=== PATIENT | female | born 1940 | race Caucasian/White ===

== ENCOUNTER 2021-06-23 16:13 | Inpatient (IN) ==
[2021-06-23] MEDS ORDERED: Naloxone 0.4 MG/ML INJ IVP PRN ×2 (22:33→23:44)
[2021-06-24] MEDS ORDERED: Acetaminophen 325 MG TABLET PO PRN (00:05)
[2021-06-24] MEDS ORDERED: Melatonin 3 MG TABLET PO PRN (00:05)
[2021-06-24] MEDS ORDERED: *HR* Dextrose 50 % in Water (Syg) 50 ML SYRINGE IVP PRN (00:15)
[2021-06-24] MEDS ORDERED: Dextrose 4 GM Chewable Tablets PO PRN ×2 (00:15)
[2021-06-24] MEDS ORDERED: D5% in Water 1,000 ML IVC PRN (00:15)
[2021-06-24 00:22] LABS: Magnesium 1.3 mg/dL (1.6-2.6); Phosphorous 1.9 mg/dL (2.7-4.5)
[2021-06-24 00:28] LABS: Albumin 3.6 g/dL (3.5-5.7); Calcium 9.3 mg/dL (8.6-10.3); Phosphorous 1.9 mg/dL (2.7-4.5)
[2021-06-24 00:42] LABS: Hematocrit 31.2 % (35.3-44.9); Hemoglobin 9.1 g/dL (11.5-15.4); Mean Corpuscular HGB Conc 29.2 g/dL (31.6-35.5); Mean Corpuscular Volume 89.1 fL (83.0-100.0); Platelet Count 230 K/mcL (140-400); White Blood Count 6.3 K/mcL (4.3-11.1)
[2021-06-24] MEDS ORDERED: SODIUM ZIRCONIUM CYCLOSILICATE 5 GM POWD.PACK PO SCH (00:45)
[2021-06-24] MEDS ORDERED: 0.9 % Sodium Chloride 1,000 ML ONE (03:17)
[2021-06-24 04:04] LABS: Sodium, Urine 35.7 mEq/L
[2021-06-24 04:07] LABS: Bacteria,Urine Few per hpf (None-Few); Bilirubin,Urine Negative (Negative); Blood,Urine Small (Negative); Clarity,Urine Turbid (Clear); Color,Urine Yellow (Yellow); Glucose,Urine (UA) Normal (Normal); Ketones,Urine Negative (Negative); Leukocyte Esterase,Urine Large (Negative); Mucus,Urine Few per lpf (None-Few); Nitrite,Urine Negative (Negative); Protein,Urine Trace mg/dL (Neg-Trace); RBC,Urine 0-3 per hpf (0-3); Squamous Epithelial Cell,Urine Few per hpf (None-Few); Urobilinogen,Urine Normal (Normal)
[2021-06-24] MEDS: Furosemide 20 MG/2 ML VIAL IVP SCH ×3 (04:41→20:46)
[2021-06-24 06:26] LABS: Basophils % 0.3 %; Eosinophils # 0.1 K/mcL (0.0-0.6); Eosinophils % 1.3 %; Hemoglobin 8.7 g/dL (11.5-15.4); Immature Granulocytes % 0.3 % (0-4); Lymphocytes # 0.8 K/mcL (0.6-4.6); Lymphocytes % 12.8 %; Mean Corpuscular Hemoglobin 25.4 pg (28.0-33.3); Mean Corpuscular Volume 87.5 fL (83.0-100.0); Mean Platelet Volume 10.8 fL (9.4-12.4); Monocytes # 0.4 K/mcL (0.0-1.3); Neutrophils # 4.7 K/mcL (1.6-8.9); Nucleated Red Blood Cells 0.5 /100 WBC (0); Platelet Count 208 K/mcL (140-400); Red Blood Count 3.43 M/mcL (3.82-4.97); Segmented Neutrophils % 78.3 %
[2021-06-24 06:34] LABS: Magnesium 1.8 mg/dL (1.6-2.6); Phosphorous 2.1 mg/dL (2.7-4.5)
[2021-06-24 06:46] LABS: Calcium 9.2 mg/dL (8.6-10.3); Chol/HDL Ratio 2.2 (0-4.9); Potassium 6.9 mEq/L (3.5-5.1)
[2021-06-24] MEDS ORDERED: Insulin Human Regular 10 UNIT in 0.9 % Sodium Chloride 10 ML IV ONE (07:43)
[2021-06-24] MEDS ORDERED: *HR* Dextrose 50 % in Water (Syg) 50 ML SYRINGE IVP ONE (07:44)
[2021-06-24] MEDS: Insulin LISPRO 300 UNITS/3 ML VIAL SUBQ SCH ×4 (08:13→20:26)
[2021-06-24] MEDS: Apixaban 5 MG TABLET PO SCH ×2 (09:29→20:36)
[2021-06-24] MEDS: Nicotine 7 MG PATCH.TD24 TD SCH (09:30)
[2021-06-24] MEDS: SODIUM ZIRCONIUM CYCLOSILICATE 5 GM POWD.PACK PO SCH ×2 (09:30→20:40)
[2021-06-24] MEDS: *HR* Amiodarone 200 MG TABLET PO SCH ×2 (09:30→20:36)
[2021-06-24] MEDS ORDERED: Perflutren Lipid Microsphere 1.3 ML in 0.9 % Sodium Chloride 8.7 ML IVP PRN (10:01)
[2021-06-24] MEDS: Albumin 25% 25gram/100mL 25 GM/100 ML IV.SOLN IVPB SCH ×2 (12:29→18:48)
[2021-06-24] MEDS: Metoprolol XL (24 HR) Succ 25 MG TAB.ER.24H PO SCH (16:06)
[2021-06-24] MEDS: Budesonide/Formoterol 160/4.5 1 PUFF INH IH SCH (20:42)
[2021-06-25] MEDS: Albumin 25% 25gram/100mL 25 GM/100 ML IV.SOLN IVPB SCH ×3 (04:54→20:15)
[2021-06-25 05:38] LABS: Basophils % 0.6 %; Eosinophils # 0.1 K/mcL (0.0-0.6); Eosinophils % 1.9 %; Hematocrit 30.2 % (35.3-44.9); Hemoglobin 8.5 g/dL (11.5-15.4); Immature Granulocytes % 0.4 % (0-4); Lymphocytes # 0.7 K/mcL (0.6-4.6); Lymphocytes % 12.9 %; Mean Corpuscular HGB Conc 28.1 g/dL (31.6-35.5); Mean Corpuscular Hemoglobin 25.5 pg (28.0-33.3); Mean Corpuscular Volume 90.7 fL (83.0-100.0); Monocytes # 0.5 K/mcL (0.0-1.3); Monocytes % 8.8 %; Nucleated Red Blood Cells 0.6 /100 WBC (0); Platelet Count 210 K/mcL (140-400); Red Blood Count 3.33 M/mcL (3.82-4.97); Segmented Neutrophils % 75.4 %; White Blood Count 5.3 K/mcL (4.3-11.1)
[2021-06-25 05:56] LABS: Magnesium 1.5 mg/dL (1.6-2.6); Phosphorous 4.5 mg/dL (2.7-4.5)
[2021-06-25] MEDS: Insulin LISPRO 300 UNITS/3 ML VIAL SUBQ SCH ×4 (07:25→20:01)
[2021-06-25] MEDS: Budesonide/Formoterol 160/4.5 1 PUFF INH IH SCH ×2 (07:45→20:13)
[2021-06-25] MEDS: Furosemide 20 MG/2 ML VIAL IVP SCH ×3 (07:49→17:23)
[2021-06-25] MEDS: Metoprolol XL (24 HR) Succ 25 MG TAB.ER.24H PO SCH ×2 (07:50→12:21)
[2021-06-25] MEDS: Apixaban 5 MG TABLET PO SCH (07:51)
[2021-06-25] MEDS: Nicotine 7 MG PATCH.TD24 TD SCH (07:53)
[2021-06-25] MEDS: *HR* Amiodarone 200 MG TABLET PO SCH ×2 (07:53→20:17)
[2021-06-25] MEDS ORDERED: Insulin Human Regular 10 UNIT in 0.9 % Sodium Chloride 10 ML IV ONE (07:55)
[2021-06-25] MEDS ORDERED: *HR* Dextrose 50 % in Water (Vial) 50 ML VIAL IVP ONE (07:57)
[2021-06-25] MEDS: polyethylene glycoL 3350 17 GM POWD.PACK PO SCH (10:30)
[2021-06-25] MEDS: rOPINIRole 1 MG TABLET PO SCH (15:11)
[2021-06-25] MEDS: SODIUM ZIRCONIUM CYCLOSILICATE 5 GM POWD.PACK PO SCH (15:17)
[2021-06-25 17:07] LABS: Estimated Average Glucose 134 mg/dl; Hemoglobin A1C 6.3 %
[2021-06-25] MEDS: Ondansetron 4 MG/2 ML VIAL IVP PRN (17:22)
[2021-06-25] MEDS: Apixaban 2.5 MG TABLET PO SCH (20:16)
[2021-06-25] MEDS ORDERED: rOPINIRole 1 MG TABLET PO SCH (21:00)
[2021-06-26] MEDS: Albumin 25% 25gram/100mL 25 GM/100 ML IV.SOLN IVPB SCH ×3 (04:22→15:39)
[2021-06-26] MEDS: Ondansetron 4 MG/2 ML VIAL IVP PRN ×2 (04:26→16:07)
[2021-06-26 04:56] LABS: Basophils % 0.4 %; Eosinophils % 0.6 %; Hematocrit 28.8 % (35.3-44.9); Hemoglobin 8.4 g/dL (11.5-15.4); Immature Granulocytes % 0.2 % (0-4); Lymphocytes # 0.4 K/mcL (0.6-4.6); Lymphocytes % 8.2 %; Mean Corpuscular HGB Conc 29.2 g/dL (31.6-35.5); Mean Corpuscular Hemoglobin 26.3 pg (28.0-33.3); Mean Platelet Volume 11.1 fL (9.4-12.4); Monocytes # 0.4 K/mcL (0.0-1.3); Monocytes % 7.5 %; Neutrophils # 4.3 K/mcL (1.6-8.9); Nucleated Red Blood Cells 0.8 /100 WBC (0); Platelet Count 206 K/mcL (140-400); Red Cell Distribution Width 15.7 % (11.5-14.5); Segmented Neutrophils % 83.1 %; White Blood Count 5.2 K/mcL (4.3-11.1)
[2021-06-26 05:10] LABS: Magnesium 1.7 mg/dL (1.6-2.6); Phosphorous 5.2 mg/dL (2.7-4.5); Potassium 5.9 mEq/L (3.5-5.1)
[2021-06-26] MEDS ORDERED: Furosemide 20 MG/2 ML VIAL IVP ONE (07:42)
[2021-06-26] MEDS ORDERED: Furosemide 20 MG/2 ML VIAL IVP STA (07:44)
[2021-06-26] MEDS: Insulin LISPRO 300 UNITS/3 ML VIAL SUBQ SCH ×4 (07:48→21:11)
[2021-06-26] MEDS ORDERED: Albumin 25% 25gram/100mL 25 GM/100 ML IV.SOLN IVPB ONE (07:48)
[2021-06-26] MEDS: Metoprolol XL (24 HR) Succ 25 MG TAB.ER.24H PO SCH (08:00)
[2021-06-26] MEDS: Budesonide/Formoterol 160/4.5 1 PUFF INH IH SCH ×2 (08:04→20:03)
[2021-06-26 08:12] LABS: ABG Base Excess 3 mEq/L (-2 to 3); ABG HCO3 30 mEq/L (21-27); ABG Oxygen Saturation 94 % (95-98); ABG PCO2 65 mmHg (35-45); ABG PH 7.28 pH Units (7.32-7.45); ABG PO2 81 mmHg (85-104); ABG TCO2 32 mEq/L (20-26)
[2021-06-26] MEDS ORDERED: NON-FORMULARY MEDICATION 1 EACH EACH (Omeprazole [Prilosec] 40 MG Capsule.Dr) PO SCH (09:00)
[2021-06-26] MEDS ORDERED: Pregabalin 75 MG CAPSULE PO SCH (09:00)
[2021-06-26] MEDS: SODIUM ZIRCONIUM CYCLOSILICATE 5 GM POWD.PACK PO SCH (09:28)
[2021-06-26] MEDS: Furosemide 20 MG/2 ML VIAL IVP SCH ×3 (09:30→20:00)
[2021-06-26] MEDS: Pregabalin 50 MG CAPSULE PO SCH (09:44)
[2021-06-26] MEDS: *HR* Amiodarone 200 MG TABLET PO SCH ×2 (09:45→21:11)
[2021-06-26] MEDS: Apixaban 2.5 MG TABLET PO SCH ×2 (09:45→21:11)
[2021-06-26] MEDS: Nicotine 7 MG PATCH.TD24 TD SCH (09:45)
[2021-06-26] MEDS: polyethylene glycoL 3350 17 GM POWD.PACK PO SCH (09:54)
[2021-06-26] MEDS: cefTRIAXone 1,000 MG in 0.9 % Sodium Chloride 10 ML IVP SCH (14:28)
[2021-06-26] MEDS: Azithromycin 500 MG in 0.9 % Sodium Chloride 250 ML IVPB SCH (14:29)
[2021-06-26] MEDS: Norepinephrine 4 MG/254 ML IV.SOLN IVC SCH ×3 (15:35→20:08)
[2021-06-26] MEDS ORDERED: Morphine Sulfate 2 MG/ML SYRINGE IVP ONE (15:47)
[2021-06-26] MEDS ORDERED: Morphine Sulfate 2 MG/ML SYRINGE IVP PRN (15:51)
[2021-06-26] MEDS ORDERED: *HR* LORazepam 2 MG/ML VIAL IVP ONE (16:17)
[2021-06-26] MEDS: Acetaminophen IV 1,000 MG/100 ML BAG IVPB SCH (18:31)
[2021-06-26] MEDS: rOPINIRole 1 MG TABLET PO SCH (21:12)
[2021-06-27] MEDS: Norepinephrine 4 MG/254 ML IV.SOLN IVC SCH ×7 (00:07→18:52)
[2021-06-27] MEDS: Albumin 25% 25gram/100mL 25 GM/100 ML IV.SOLN IVPB SCH ×3 (00:34→16:44)
[2021-06-27 02:31] LABS: Basophils % 0.5 %; Eosinophils % 0.5 %; Hematocrit 27.8 % (35.3-44.9); Hemoglobin 8.1 g/dL (11.5-15.4); Immature Granulocytes % 0.3 % (0-4); Lymphocytes # 0.9 K/mcL (0.6-4.6); Lymphocytes % 14.7 %; Mean Corpuscular HGB Conc 29.1 g/dL (31.6-35.5); Mean Corpuscular Hemoglobin 25.7 pg (28.0-33.3); Mean Corpuscular Volume 88.3 fL (83.0-100.0); Mean Platelet Volume 11.1 fL (9.4-12.4); Monocytes # 0.6 K/mcL (0.0-1.3); Monocytes % 9.3 %; Neutrophils # 4.4 K/mcL (1.6-8.9); Nucleated Red Blood Cells 0.3 /100 WBC (0); Platelet Count 186 K/mcL (140-400); Red Blood Count 3.15 M/mcL (3.82-4.97); Red Cell Distribution Width 15.8 % (11.5-14.5); Segmented Neutrophils % 74.7 %; White Blood Count 5.9 K/mcL (4.3-11.1)
[2021-06-27] MEDS: Acetaminophen IV 1,000 MG/100 ML BAG IVPB SCH ×3 (02:39→12:45)
[2021-06-27 02:49] LABS: Magnesium 1.7 mg/dL (1.6-2.6); Phosphorous 5.4 mg/dL (2.7-4.5); Potassium 5.9 mEq/L (3.5-5.1)
[2021-06-27] MEDS ORDERED: *HR* Dextrose 50 % in Water (Vial) 50 ML VIAL IVP ONE (07:37)
[2021-06-27] MEDS ORDERED: Insulin Human Regular 10 UNIT in 0.9 % Sodium Chloride 10 ML IV ONE (07:37)
[2021-06-27] MEDS: Insulin LISPRO 300 UNITS/3 ML VIAL SUBQ SCH ×4 (07:57→21:37)
[2021-06-27] MEDS: Furosemide 20 MG/2 ML VIAL IVP SCH ×2 (08:19→16:46)
[2021-06-27] MEDS: *HR* Amiodarone 200 MG TABLET PO SCH (08:19)
[2021-06-27] MEDS: Pregabalin 50 MG CAPSULE PO SCH (08:20)
[2021-06-27] MEDS: Apixaban 2.5 MG TABLET PO SCH ×2 (08:20→21:36)
[2021-06-27] MEDS: cefTRIAXone 1,000 MG in 0.9 % Sodium Chloride 10 ML IVP SCH (08:20)
[2021-06-27] MEDS: Nicotine 7 MG PATCH.TD24 TD SCH (08:20)
[2021-06-27] MEDS: Metoprolol XL (24 HR) Succ 25 MG TAB.ER.24H PO SCH (08:21)
[2021-06-27] MEDS: SODIUM ZIRCONIUM CYCLOSILICATE 5 GM POWD.PACK PO SCH (08:35)
[2021-06-27] MEDS: polyethylene glycoL 3350 17 GM POWD.PACK PO SCH (08:35)
[2021-06-27] MEDS: Budesonide/Formoterol 160/4.5 1 PUFF INH IH SCH (08:43)
[2021-06-27] MEDS: Albumin 25% 25gram/100mL 25 GM/100 ML IV.SOLN IVC SCH ×2 (10:57→11:51)
[2021-06-27] MEDS: Azithromycin 500 MG in 0.9 % Sodium Chloride 250 ML IVPB SCH (13:45)
[2021-06-27] MEDS ORDERED: *HR* LORazepam 2 MG/ML VIAL IVP PRN (13:48)
[2021-06-27] MEDS: rOPINIRole 1 MG TABLET PO SCH (21:37)
[2021-06-28] MEDS: Ondansetron 4 MG/2 ML VIAL IVP PRN (00:03)
[2021-06-28] MEDS: Budesonide/Formoterol 160/4.5 1 PUFF INH IH SCH ×3 (00:33→20:02)
[2021-06-28] MEDS: Albumin 25% 25gram/100mL 25 GM/100 ML IV.SOLN IVPB SCH ×3 (01:24→16:59)
[2021-06-28] MEDS ORDERED: Ondansetron 4 MG/2 ML VIAL IVP ONE (01:46)
[2021-06-28] MEDS ORDERED: Acetaminophen IV 1,000 MG/100 ML BAG IVPB ONE (01:47)
[2021-06-28 04:56] LABS: Basophils # 0.1 K/mcL (0.0-0.2); Basophils % 0.9 %; Eosinophils % 0.7 %; Hematocrit 26.2 % (35.3-44.9); Hemoglobin 7.7 g/dL (11.5-15.4); Immature Granulocytes % 0.5 % (0-4); Lymphocytes # 0.6 K/mcL (0.6-4.6); Lymphocytes % 10.9 %; Mean Corpuscular HGB Conc 29.4 g/dL (31.6-35.5); Mean Corpuscular Hemoglobin 25.8 pg (28.0-33.3); Mean Corpuscular Volume 87.9 fL (83.0-100.0); Mean Platelet Volume 11.4 fL (9.4-12.4); Monocytes # 0.5 K/mcL (0.0-1.3); Monocytes % 8.4 %; Neutrophils # 4.3 K/mcL (1.6-8.9); Nucleated Red Blood Cells 0.7 /100 WBC (0); Platelet Count 198 K/mcL (140-400); Red Blood Count 2.98 M/mcL (3.82-4.97); Red Cell Distribution Width 15.9 % (11.5-14.5); Segmented Neutrophils % 78.6 %; White Blood Count 5.5 K/mcL (4.3-11.1)
[2021-06-28] MEDS: Norepinephrine 4 MG/254 ML IV.SOLN IVC SCH ×5 (04:58→16:49)
[2021-06-28 05:18] LABS: Calcium 8.8 mg/dL (8.6-10.3); Magnesium 1.7 mg/dL (1.6-2.6); Phosphorous 4.9 mg/dL (2.7-4.5); Potassium 5.4 mEq/L (3.5-5.1)
[2021-06-28] MEDS: Insulin LISPRO 300 UNITS/3 ML VIAL SUBQ SCH ×4 (07:48→20:03)
[2021-06-28] MEDS: Furosemide 20 MG/2 ML VIAL IVP SCH (08:59)
[2021-06-28] MEDS: Pregabalin 50 MG CAPSULE PO SCH (09:16)
[2021-06-28] MEDS: Nicotine 7 MG PATCH.TD24 TD SCH (09:16)
[2021-06-28] MEDS: Apixaban 2.5 MG TABLET PO SCH ×2 (09:17→20:13)
[2021-06-28] MEDS: polyethylene glycoL 3350 17 GM POWD.PACK PO SCH (09:18)
[2021-06-28] MEDS: cefTRIAXone 1,000 MG in 0.9 % Sodium Chloride 10 ML IVP SCH (09:18)
[2021-06-28] MEDS: Azithromycin 500 MG in 0.9 % Sodium Chloride 250 ML IVPB SCH (14:17)
[2021-06-28] MEDS ORDERED: Milk and Molasses Enema 200 ML RC ONE (15:38)
[2021-06-28] MEDS ORDERED: *HR* Amiodarone 200 MG TABLET PO SCH (16:00)
[2021-06-28] MEDS: rOPINIRole 1 MG TABLET PO SCH (20:13)
[2021-06-29] MEDS: Albumin 25% 25gram/100mL 25 GM/100 ML IV.SOLN IVPB SCH ×2 (00:10→08:02)
[2021-06-29 05:44] LABS: Hemoglobin 8.3 g/dL (11.5-15.4)
[2021-06-29 05:45] LABS: Basophils # 0.1 K/mcL (0.0-0.2); Basophils % 0.9 %; Eosinophils % 0.7 %; Hematocrit 29.1 % (35.3-44.9); Immature Granulocytes % 0.5 % (0-4); Lymphocytes # 0.5 K/mcL (0.6-4.6); Lymphocytes % 8.6 %; Mean Corpuscular HGB Conc 28.5 g/dL (31.6-35.5); Mean Corpuscular Hemoglobin 25.5 pg (28.0-33.3); Mean Corpuscular Volume 89.5 fL (83.0-100.0); Mean Platelet Volume 10.8 fL (9.4-12.4); Monocytes # 0.5 K/mcL (0.0-1.3); Monocytes % 9.3 %; Platelet Count 193 K/mcL (140-400); Red Blood Count 3.25 M/mcL (3.82-4.97); White Blood Count 5.8 K/mcL (4.3-11.1)
[2021-06-29 05:57] LABS: Neutrophils # 4.6 K/mcL (1.6-8.9)
[2021-06-29 06:12] LABS: Calcium 9.2 mg/dL (8.6-10.3); Magnesium 1.8 mg/dL (1.6-2.6); Phosphorous 4.6 mg/dL (2.7-4.5); Potassium 5.3 mEq/L (3.5-5.1)
[2021-06-29] MEDS: Insulin LISPRO 300 UNITS/3 ML VIAL SUBQ SCH ×4 (07:35→20:39)
[2021-06-29] MEDS: cefTRIAXone 1,000 MG in 0.9 % Sodium Chloride 10 ML IVP SCH (08:02)
[2021-06-29] MEDS: Nicotine 7 MG PATCH.TD24 TD SCH (08:02)
[2021-06-29] MEDS: Pregabalin 50 MG CAPSULE PO SCH (08:02)
[2021-06-29] MEDS: polyethylene glycoL 3350 17 GM POWD.PACK PO SCH (08:02)
[2021-06-29] MEDS: Furosemide 20 MG/2 ML VIAL IVP SCH (08:05)
[2021-06-29] MEDS: Apixaban 2.5 MG TABLET PO SCH ×2 (08:05→20:18)
[2021-06-29] MEDS: Budesonide/Formoterol 160/4.5 1 PUFF INH IH SCH ×2 (08:11→19:54)
[2021-06-29] MEDS: Azithromycin 500 MG in 0.9 % Sodium Chloride 250 ML IVPB SCH (14:13)
[2021-06-29] MEDS: rOPINIRole 1 MG TABLET PO SCH (20:18)
[2021-06-30] MEDS: Ondansetron 4 MG/2 ML VIAL IVP PRN (02:36)
[2021-06-30 03:03] LABS: Lymphocytes % 8.3 %; Mean Corpuscular HGB Conc 28.9 g/dL (31.6-35.5); Mean Corpuscular Hemoglobin 25.5 pg (28.0-33.3); Mean Platelet Volume 11.3 fL (9.4-12.4)
[2021-06-30 03:04] LABS: Basophils % 0.5 %; Eosinophils # 0.1 K/mcL (0.0-0.6); Hematocrit 28.4 % (35.3-44.9); Hemoglobin 8.2 g/dL (11.5-15.4); Immature Granulocytes % 0.3 % (0-4); Lymphocytes # 0.5 K/mcL (0.6-4.6); Mean Corpuscular Volume 88.2 fL (83.0-100.0); Monocytes # 0.6 K/mcL (0.0-1.3); Monocytes % 10.6 %; Neutrophils # 4.8 K/mcL (1.6-8.9); Nucleated Red Blood Cells 0.8 /100 WBC (0); Platelet Count 212 K/mcL (140-400); Red Blood Count 3.22 M/mcL (3.82-4.97); Segmented Neutrophils % 79.3 %
[2021-06-30 03:20] LABS: Calcium 9.3 mg/dL (8.6-10.3); Magnesium 1.9 mg/dL (1.6-2.6); Phosphorous 4.9 mg/dL (2.7-4.5); Potassium 5.2 mEq/L (3.5-5.1)
[2021-06-30 04:29] LABS: Hypochromasia Present (Not Present); Platelet Estimate Normal (Normal); Polychromasia 1+ (Not Present)
[2021-06-30] MEDS: Budesonide/Formoterol 160/4.5 1 PUFF INH IH SCH ×2 (07:27→19:40)
[2021-06-30] MEDS: Insulin LISPRO 300 UNITS/3 ML VIAL SUBQ SCH ×4 (07:59→20:47)
[2021-06-30] MEDS: Apixaban 2.5 MG TABLET PO SCH ×2 (08:45→19:34)
[2021-06-30] MEDS: Nicotine 7 MG PATCH.TD24 TD SCH (08:45)
[2021-06-30] MEDS: *HR* Amiodarone 200 MG TABLET PO SCH ×2 (08:45→19:34)
[2021-06-30] MEDS: polyethylene glycoL 3350 17 GM POWD.PACK PO SCH (08:45)
[2021-06-30] MEDS: Pregabalin 50 MG CAPSULE PO SCH (08:45)
[2021-06-30] MEDS: Furosemide 20 MG/2 ML VIAL IVP SCH (08:46)
[2021-06-30] MEDS: cefTRIAXone 1,000 MG in 0.9 % Sodium Chloride 10 ML IVP SCH (08:46)
[2021-06-30] MEDS: rOPINIRole 1 MG TABLET PO SCH (19:34)
[2021-07-01] MEDS: Insulin LISPRO 300 UNITS/3 ML VIAL SUBQ SCH (07:41)
[2021-07-01] MEDS: Budesonide/Formoterol 160/4.5 1 PUFF INH IH SCH ×2 (07:45→20:31)
[2021-07-01] MEDS: Nicotine 7 MG PATCH.TD24 TD SCH (08:45)
[2021-07-01] MEDS: Furosemide 20 MG/2 ML VIAL IVP SCH (08:45)
[2021-07-01 09:00] LABS: VBG HCO3 32 mEq/L (21-27); VBG PCO2 91 mmHg (41-51); VBG PH 7.15 pH Units (7.32-7.42); VBG PO2 87 mmHg (25-50)
[2021-07-01 09:10] LABS: Calcium 9.5 mg/dL (8.6-10.3); Potassium 6.4 mEq/L (3.5-5.1)
[2021-07-01] MEDS: Apixaban 2.5 MG TABLET PO SCH (09:24)
[2021-07-01] MEDS: *HR* Amiodarone 200 MG TABLET PO SCH (09:24)
[2021-07-01] MEDS: polyethylene glycoL 3350 17 GM POWD.PACK PO SCH (09:25)
[2021-07-01] MEDS ORDERED: Atropine 1% Opth Drops 100 DROP/5 ML BOTTLE SL PRN (10:02)
[2021-07-01] MEDS ORDERED: Saliva Stimulant 44.3ml BOTTLE PO PRN (10:02)
[2021-07-01] MEDS ORDERED: *HR* FentaNYL (PF) 100 MCG/2 ML VIAL IVP PRN (10:02)
[2021-07-01] MEDS ORDERED: Scopolamine Patch 1.5 MG PATCH.TD72 TD SCH (10:15)
[2021-07-01] MEDS ORDERED: Haloperidol Lactate 5 MG/ML VIAL IVP PRN (10:33)
[2021-07-01] MEDS: *HR* LORazepam 2 MG/ML VIAL IVP PRN ×2 (16:32→20:20)
[2021-07-01] MEDS ORDERED: Artificial Tears SOLN 15 ML BOTTLE BOTH EYES SCH (21:00)
[2021-07-02] MEDS: *HR* LORazepam 2 MG/ML VIAL IVP PRN (02:27)
[2021-07-02 07:12] VITALS: BP 96/59; PULSE 104; TEMP 98.9; O2SAT 82
[2021-07-02] MEDS: Budesonide/Formoterol 160/4.5 1 PUFF INH IH SCH (07:25)
[2021-07-02] MEDS: Nicotine 7 MG PATCH.TD24 TD SCH (08:04)
== END 2021-07-02 14:59 | disposition expired | DRG 291 ==
LOC: 2NENU → SUATTDRO 22:33 → 2NNU 06-26 20:02 → 2ANU 06-29 15:08
PROVIDERS: ADMIT Internal Medicine; ATTEND Internal Medicine